=== PATIENT | female | born 1960 | race Caucasian/White ===

== ENCOUNTER 2024-11-05 19:05 | Emergency (ER) | payer BC, OTHER ==
[~2024-11-05] VITALS: Ht 162.6 cm; Wt 56.8 kg
[2024-11-05] MEDS: ONDANSETRON 4MG 2ML VIAL IV ONE (19:55)
[2024-11-05 19:56] LABS: BASO # 0.1 10^3/uL (0.0-0.2); BASO % 0.9 % (0.0-1.0); EOS # 0.1 10^3/uL (0.0-0.5); EOS % 0.6 % (0.0-3.0); LYMPH # 3.5 10^3/uL (1.5-5.0); LYMPH % 30.4 % (24.0-44.0); MONO # 1.0 10^3/uL (0.0-0.8); MONO % 8.5 % (2.0-8.0); NEUTROPHILS # 6.8 10^3/uL (1.5-8.5); NEUTROPHILS % 59.2 % (36.0-66.0); PLATELET COUNT, AUTOMATED 334 10^3/uL (150-450)
[2024-11-05] MEDS: PERCOCET 5MG/325MG TAB PO ONE (19:58)
[2024-11-05 20:15] LABS: ERYTHROCYTE SEDIMENTATION RATE 10 mm/hr (0-30)
[2024-11-05 20:25] LABS: KETONE, URINE AUTO RFX 1+ mg/dL (NEGATIVE); LEUKOCYTE ESTERASE UR AUTO RFX NEGATIVE (NEGATIVE); MUCUS, URINE RFX SMALL (NEGATIVE); NITRITE, URINE AUTO RFX NEGATIVE (NEGATIVE); RBC, URINE AUTO RFX TNTC /HPF (0-3); SQUAM EPITHELIAL CELL UR AURFX 0 /HPF (0-6); WBC, URINE AUTO RFX 3 /HPF (0-3)
[2024-11-05 20:26] LABS: ALT/SGPT 26 U/L (7.0-40); AST/SGOT 24 U/L (<34); C REACTIVE PROTEIN QUANTITATIV < 0.50 MG/DL (<1.0)
[2024-11-05 21:23] VITALS: TEMP 97.5
[2024-11-05] MEDS ORDERED: KETO-204 PO (23:28)
[2024-11-05] MEDS ORDERED: TAMS-18 PO (23:28)
[2024-11-05] MEDS ORDERED: ONDA-282 PO (23:28)
[2024-11-05] MEDS ORDERED: PERC5TAB12 PO (23:28)
[2024-11-05] MEDS: KETOROLAC 30 MG/ML 1 ML VIAL IV ONE (23:30)
[2024-11-05 23:39] VITALS: BP 171/74; O2SAT 98
== END 2024-11-05 23:40 | disposition home or self-care (01) ==
LOC: M ED 19:05
DX: N20.1 Calculus of ureter (principal); J45.909 Unspecified asthma, uncomplicated; E78.5 Hyperlipidemia, unspecified; Z88.0 Allergy status to penicillin; Z88.1 Allergy status to other antibiotic agents
CPT/HCPCS: 74176; 80047; 80076; 81001; 83605; 83690; 85025; 85652; 86140; 96374; 96375; 99284; J1885; J2405